=== PATIENT | female | born 1980 | race Caucasian/White ===

== ENCOUNTER 2016-07-26 18:30 | Emergency (ER) | payer MEDICAID ==
[2014-03-27 07:37] VITALS: BMI 35.9
[~2016-07-26 18:30] MED LIST: ACETAMINOPHEN500 M1 PO; DIABETA2.5 MG PO; IBUPROFEN600 MG PO; PERCOCET 5-3251 TAB PO; PRENATAL COMPLE1 TAB PO
== END 2016-07-26 19:39 | disposition home or self-care (01) ==
LOC: D.ER 18:30
DX: G43.909 Migraine, unspecified, not intractable, without status migrainosus (principal)

== ENCOUNTER 2016-08-01 18:48 | Emergency (ER) | payer MEDICAID ==
[2014-03-27 07:37] VITALS: BMI 35.9
== END 2016-08-01 22:20 | disposition home or self-care (01) ==
LOC: D.ER 18:48
DX: R11.10 Vomiting, unspecified (principal)

== ENCOUNTER 2016-08-21 15:49 | Emergency (ER) | payer MEDICAID ==
[2014-03-27 07:37] VITALS: BMI 35.9
[2016-08-22 01:10] LABS: APPEARANCE CLEAR (CLEAR); BILIRUBIN NEGATIVE (NEGATIVE); COLOR YELLOW (YELLOW); GLUCOSE NEGATIVE (NEGATIVE); KETONE NEGATIVE (NEGATIVE); LEUKOCYTE ESTERASE NEGATIVE (NEGATIVE); NITRITE NEGATIVE (NEGATIVE); PROTEIN NEGATIVE (NEGATIVE); UROBILINOGEN NORMAL (NORMAL)
== END 2016-08-22 01:34 | disposition home or self-care (01) ==
LOC: D.ER 15:49
PROVIDERS: Nurse Practitioner Acute Care
DX: R51 Headache (principal); S39.012A Strain of muscle, fascia and tendon of lower back, initial encounter; X58.XXXA Exposure to other specified factors, initial encounter; Y93.89 Activity, other specified; Y92.89 Other specified places as the place of occurrence of the external cause; F17.200 Nicotine dependence, unspecified, uncomplicated

== ENCOUNTER 2016-10-22 18:46 | Emergency (ER) | payer MEDICAID ==
[2014-03-27 07:37] VITALS: BMI 35.9
== END 2016-10-22 21:39 | disposition home or self-care (01) ==
LOC: D.ER 18:46
DX: M54.10 Radiculopathy, site unspecified (principal); E11.9 Type 2 diabetes mellitus without complications

== ENCOUNTER 2017-01-17 14:47 | Emergency (ER) | payer MEDICAID ==
[2014-03-27 07:37] VITALS: BMI 35.9
[2017-01-17 15:36] LABS: BASOPHILS 0.1 % (0-2); EOSINOPHILS 2.3 % (0-7); HEMATOCRIT 39.8 % (36.0-48.0); HEMOGLOBIN 13.5 g/dL (12-16); IMMATURE GRANULOCYTES 0.6 % (0-5); LYMPHOCYTES 18.7 % (15-50); MCH 30.2 pg (26.0-34.0); MCHC 33.9 g/dL (31.0-37.0); MEAN PLATELET VOLUME 10.8 fL (7.4-10.4); MONOCYTES 7.2 % (2-11); NEUTROPHILS 71.1 % (40-80); PLATELET COUNT 228 10x3/uL (130-400); RBC 4.47 10x6/uL (4.00-5.40); RDW 13.2 % (11.5-14.5); WBC 7.1 10x3/uL (4.8-10.8)
[2017-01-17 15:44] LABS: HCG SERUM NEGATIVE (NEGATIVE)
[2017-01-17 15:55] LABS: APPEARANCE TURBID (CLEAR); BILIRUBIN NEGATIVE (NEGATIVE); COLOR RED (YELLOW); GLUCOSE NEGATIVE (NEGATIVE); KETONE NEGATIVE (NEGATIVE); NITRITE NEGATIVE (NEGATIVE); PROTEIN 2+ mg/dL (NEGATIVE); SPECIFIC GRAVITY 1.025 (1.005-1.020); UROBILINOGEN NORMAL (NORMAL)
[2017-01-17 15:58] LABS: BACTERIA FEW /hpf (NONE SEEN); EPITHELIAL CELLS 0-5 /hpf (0-5); RED CELLS - URINE >50 /hpf (0-5); WHITE CELLS - URINE 0-5 /hpf (0-5)
== END 2017-01-17 16:22 | disposition home or self-care (01) ==
LOC: D.ER 14:47
PROVIDERS: Family Medicine; Nurse Practitioner Acute Care
DX: N94.0 Mittelschmerz (principal); E11.9 Type 2 diabetes mellitus without complications

== ENCOUNTER 2017-03-10 17:23 | Emergency (ER) | payer MEDICAID ==
[2014-03-27 07:37] VITALS: BMI 35.9
== END 2017-03-10 21:46 | disposition home or self-care (01) ==
LOC: D.ER 17:23
DX: J11.1 Influenza due to unidentified influenza virus with other respiratory manifestations (principal)

== ENCOUNTER 2017-07-24 22:09 | Emergency (ER) | payer MEDICAID ==
[2014-03-27 07:37] VITALS: BMI 35.9
[2017-07-24 22:40] LABS: BASOPHILS 0.2 % (0-2); EOSINOPHILS 2.3 % (0-7); HEMATOCRIT 37.4 % (36.0-48.0); HEMOGLOBIN 12.9 g/dL (12-16); IMMATURE GRANULOCYTES 0.3 % (0-5); LYMPHOCYTES 25.8 % (15-50); MCH 30.1 pg (26.0-34.0); MCHC 34.5 g/dL (31.0-37.0); MCV 87.4 fL (80.0-100.0); MEAN PLATELET VOLUME 10.4 fL (7.4-10.4); MONOCYTES 8.2 % (2-11); NEUTROPHILS 63.2 % (40-80); PLATELET COUNT 217 10x3/uL (130-400); RBC 4.28 10x6/uL (4.00-5.40); RDW 13.7 % (11.5-14.5); WBC 6.1 10x3/uL (4.8-10.8)
[2017-07-24 22:41] LABS: APPEARANCE CLEAR (CLEAR); BILIRUBIN NEGATIVE (NEGATIVE); COLOR YELLOW (YELLOW); GLUCOSE NEGATIVE (NEGATIVE); KETONE NEGATIVE (NEGATIVE); NITRITE NEGATIVE (NEGATIVE); PROTEIN NEGATIVE (NEGATIVE); SPECIFIC GRAVITY 1.015 (1.005-1.020); UROBILINOGEN NORMAL (NORMAL)
[2017-07-24 22:42] LABS: BACTERIA MODERATE /hpf (NONE SEEN); EPITHELIAL CELLS 0-5 /hpf (0-5); HCG URINE NEGATIVE (NEGATIVE); RED CELLS - URINE OCC /hpf (0-5); WHITE CELLS - URINE 0-5 /hpf (0-5)
[2017-07-24 22:54] LABS: ALBUMIN 3.8 g/dL (3.4-5.0); ALKALINE PHOSPHATASE 96 U/L (46-116); ALT (SGPT) 100 U/L (10-68); CALC OSMOLALITY 281 mosm/kg (275-300); CALCIUM 8.9 mg/dL (8.5-10.1); CARBON DIOXIDE 25.8 mmol/L (21.0-32.0); CHLORIDE - SERUM 106 mmol/L (98-107); CREATININE - SERUM 0.8 mg/dL (0.6-1.3); GLUCOSE 110 mg/dL (74-106); POTASSIUM - SERUM 3.5 mmol/L (3.5-5.1); PROTEIN - SERUM 7.5 g/dL (6.4-8.2); SODIUM 142 mmol/L (136-145); UREA NITROGEN 7 mg/dL (7-18); eGFR NON AFRICAN AMERICAN 86 mL/min (90-120)
[2017-07-24 22:57] LABS: AMYLASE - SERUM 45 U/L (25-115); LIPASE 97 U/L (73-393); TROPONIN-I < 0.017 ng/mL (0.000-0.060)
== END 2017-07-25 01:33 | disposition home or self-care (01) ==
LOC: D.ER 22:09
PROVIDERS: Family Medicine
DX: R10.32 Left lower quadrant pain (principal); R10.31 Right lower quadrant pain; N39.0 Urinary tract infection, site not specified; K76.0 Fatty (change of) liver, not elsewhere classified; R16.0 Hepatomegaly, not elsewhere classified; R16.1 Splenomegaly, not elsewhere classified; E11.9 Type 2 diabetes mellitus without complications

== ENCOUNTER 2017-10-31 14:54 | Emergency (ER) | payer MEDICAID ==
[~2017-10-31] VITALS: Ht 157.5 cm; Wt 83.2 kg
[2017-10-31 15:10] VITALS: Ht 157.5 cm; Wt 83.2 kg
[2017-10-31 15:26] LABS: BASOPHILS 0.2 % (0-2); EOSINOPHILS 2.4 % (0-7); HEMATOCRIT 38.4 % (36.0-48.0); HEMOGLOBIN 13.5 g/dL (12-16); IMMATURE GRANULOCYTES 0.4 % (0-5); LYMPHOCYTES 30.7 % (15-50); MCH 30.1 pg (26.0-34.0); MCHC 35.2 g/dL (31.0-37.0); MCV 85.7 fL (80.0-100.0); MONOCYTES 5.6 % (2-11); NEUTROPHILS 60.7 % (40-80); PLATELET COUNT 229 10x3/uL (130-400); RBC 4.48 10x6/uL (4.00-5.40); RDW 12.8 % (11.5-14.5); WBC 4.7 10x3/uL (4.8-10.8)
[2017-10-31 15:43] LABS: ALBUMIN 3.5 g/dL (3.4-5.0); ALKALINE PHOSPHATASE 103 U/L (46-116); ALT (SGPT) 54 U/L (10-68); AMYLASE - SERUM 51 U/L (25-115); CALC OSMOLALITY 280 mosm/kg (275-300); CALCIUM 8.2 mg/dL (8.5-10.1); CARBON DIOXIDE 27.6 mmol/L (21.0-32.0); CHLORIDE - SERUM 105 mmol/L (98-107); CREATININE - SERUM 0.9 mg/dL (0.6-1.3); GLUCOSE 175 mg/dL (74-106); LIPASE 144 U/L (73-393); POTASSIUM - SERUM 3.7 mmol/L (3.5-5.1); PROTEIN - SERUM 6.8 g/dL (6.4-8.2); SODIUM 140 mmol/L (136-145); UREA NITROGEN 8 mg/dL (7-18); eGFR NON AFRICAN AMERICAN 75 mL/min (90-120)
[2017-10-31 21:04] LABS: HCG SERUM NEGATIVE (NEGATIVE)
[2017-10-31 22:26] LABS: APPEARANCE CLEAR (CLEAR); BILIRUBIN NEGATIVE (NEGATIVE); COLOR STRAW (YELLOW); GLUCOSE NEGATIVE (NEGATIVE); KETONE NEGATIVE (NEGATIVE); NITRITE NEGATIVE (NEGATIVE); PROTEIN NEGATIVE (NEGATIVE); SPECIFIC GRAVITY 1.005 (1.005-1.020); UROBILINOGEN NORMAL (NORMAL)
[2017-10-31] MEDS ORDERED: TORADOL10 MG PO (22:48)
[2017-10-31] MEDS ORDERED: BISACODYL5 MG PO (22:50)
[2017-10-31 23:02] VITALS: BP 182/89
== END 2017-10-31 23:03 | disposition home or self-care (01) ==
LOC: D.ER 14:54
PROVIDERS: Emergency Medicine; Family Medicine
DX: N83.209 Unspecified ovarian cyst, unspecified side (principal); K59.00 Constipation, unspecified; R11.2 Nausea with vomiting, unspecified; E11.9 Type 2 diabetes mellitus without complications

== ENCOUNTER 2019-10-17 | Emergency (ER) | payer MEDICAID ==
[~2019-10-17] VITALS: Ht 157.5 cm; Wt 120.5 kg
[~2019-10-17] MED LIST changes: +BISACODYL5 MG PO; +TORADOL10 MG PO
[2019-10-17 00:11] VITALS: BP 160/100; Ht 157.5 cm; Wt 120.5 kg
[2019-10-17] MEDS ORDERED: AMBIEN5 MG PO (00:12)
[2019-10-17] MEDS ORDERED: LISINOPRIL10 MG PO (00:13)
[2019-10-17] MEDS ORDERED: CYCLOBENZAPRINE10 MG PO (00:33)
[2019-10-17] MEDS ORDERED: NAPROSYN500 MG PO (00:33)
[2019-10-17] MEDS ORDERED: ZOFRAN ODT4 MG/UDTAB PO (00:33)
== END 2019-10-17 01:19 | disposition home or self-care (01) ==
LOC: D.ER
DX: M54.2 Cervicalgia (principal); S16.1XXA Strain of muscle, fascia and tendon at neck level, initial encounter; M77.9 Enthesopathy, unspecified; R11.0 Nausea; I10 Essential (primary) hypertension